=== PATIENT | male | born 1990 ===

== ENCOUNTER 2018-06-27 11:19 | Emergency (ER) | payer BC ==
--- NOTE | 2018-06-27 11:25 | UC ---
FLU HPI - HPI Summary HPI Summary: 27 yo male presents with fever of around 100.6F, fatigue, body aches, and sore throat since last night. He tells me that he works at the [employer] and many of his co-workers were/are sick with the flu. He thinks he may have it. He took some tylenol last night with mild relief. Denies cough, SOB, chest pain, abdominal pain, n/v. - History of Current Complaint Chief Complaint: UCRespiratory Stated Complaint: FLU-LIKE SYM Time Seen by Provider: 06/27/18 11:25 Hx Obtained From: Patient Onset/Duration: Sudden Onset Severity Currently: Moderate Severity Initially: Moderate Pain Intensity: 5 Pain Scale Used: 0-10 Numeric - Allergy/Home Medications Allergies/Adverse Reactions: Allergies Allergy/AdvReac Type Severity Reaction Status Date / Time No Known Allergies Allergy Verified 06/27/18 11:26 Home Medications: Home Medications Acetaminophen [Acetaminophen Extra Strength] 500 mg PO 06/27/18 [History] PMH/Surg Hx/FS Hx/Imm Hx - Additional Past Medical History Additional PMH: None Review of Systems All Other Systems Reviewed And Are Negative: Yes Constitutional: Positive: Fever, Fatigue, Other - Body aches Skin: Positive: Negative Eyes: Positive: Negative ENT: Positive: Sore Throat Respiratory: Positive: Negative Cardiovascular: Positive: Negative Gastrointestinal: Positive: Negative Neurovascular: Positive: Negative Neurological: Positive: Negative Psychological: Positive: Negative Physical Exam - Summary Physical Exam Summary: GENERAL: NAD. WDWN. No pain distress. SKIN: No rashes, sores, lesions, or open wounds. HEENT: Head: AT/NC Eyes: EOM intact. Conjunctiva clear without inflammation or discharge. Ears: Hearing grossly normal. TMs intact, no bulging, erythema, or edema. Nose: Nasal mucosa pink and moist. NTTP maxillary and frontal sinus. Throat: Posterior oropharynx without exudates, erythema, or tonsillar enlargement. Uvula midline. NECK: Supple. Nontender. No lymphadenopathy. CHEST: CTAB. No r/r/w. No accessory muscle use. Breathing comfortably and in no distress. CV: RRR. Without m/r/g. Pulses intact. Cap refill <2seconds NEURO: Alert. PSYCH: Age appropriate behavior. Triage Information Reviewed: Yes Vital Signs: Vital Signs: Temp Pulse Resp BP Pulse Ox 99.0 F 130 18 142/87 97 06/27/18 11:24 06/27/18 11:24 06/27/18 11:24 06/27/18 11:24 06/27/18 11:24 Laboratory Tests 06/27/18 11:35 Influenza A (Rapid) Positive A Vital Signs Reviewed: Yes Flu Course/Dx - Course Course Of Treatment: POC influenza positive. Rx for tamiflu. Advised to rest and drink plenty of fluids. Continue tylenol/ibuprofen for fever/discomfort. - Differential Dx/Diagnosis Provider Diagnosis: Influenza Discharge - Sign-Out/Discharge Documenting (check all that apply): Patient Departure All imaging exams completed and their final reports reviewed: No Studies - Discharge Plan Condition: Stable Disposition: HOME Prescriptions: Oseltamivir CAP* [Tamiflu CAP*] 75 mg PO BID #10 cap Patient Education Materials: Influenza (ED) Forms: *Work Release Referrals: No Primary Care Phys,NOPCP [Primary Care Provider] - Additional Instructions: If you develop a fever, shortness of breath, chest pain, new or worsening symptoms - please call your PCP or go to the ED. Your blood pressure was high at todays visit. Please see your primary provider within 4 weeks for recheck and re-evaluation. Continue taking tylenol/ibuprofen for fever or discomfort - Billing Disposition and Condition Condition: STABLE Disposition: Home - Attestation Statements Provider Attestation: I was available for consult. This patient was seen by the ADA. The patient was not presented to, seen by, or examined by me. -Valorie
[2018-06-27 11:27] VITALS: BP 142/87
[2018-06-27 11:41] LABS: Influenza A Molecular POSITIVE (Negative)
== END 2018-06-27 11:55 | disposition home or self-care (01) ==
LOC: UCEAST 11:19
DX: J11.1 Influenza due to unidentified influenza virus with other respiratory manifestations (principal)
CPT/HCPCS: 99202; G0463